=== PATIENT | male | born 1970 ===

== ENCOUNTER 2018-05-08 08:55 | Emergency (ER) | payer OTHER ==
[2018-05-08 09:44] VITALS: BP 121/97
--- NOTE | 2018-05-08 09:49 | UC ---
Respiratory Complaint HPI - HPI Summary HPI Summary: 48 y/o male presents to urgent care c/o sinus congestion w/ yellowish nasal discharge, LANG, Sinus pressure for the past week. Pain is 4/10. he has been taken Ibuprofen/Tylenol PO, Mucinex PO to alleviate symptoms w/o any improvement. He also has PND and a dry cough. Last night he had low grade fever. Pt denies dizziness, SOB, wheeaing, chest pain, abdominal pain N/V/D. - History of Current Complaint Chief Complaint: UCGeneralIllness Stated Complaint: COUGH,CONGESTION Time Seen by Provider: 05/08/18 09:47 Hx Obtained From: Patient Onset/Duration: Gradual Onset, Lasting Weeks - 1 week, Still Present, Worse Since - 2 days Timing: Constant Severity Initially: Mild Severity Currently: Moderate Pain Intensity: 4 Pain Scale Used: 0-10 Numeric Character: Cough: Productive - dry Aggravating Factors: Recumbent Position Alleviating Factors: OTC Meds Associated Signs And Symptoms: Positive: Fever, Chills, Nasal Congestion - w/ yellowish nasal discharge, Sinus Discomfort. Negative: Wheezing Related History: Seasonal Allergies - Risk Factors Pulmonary Embolism Risk Factors: Negative Cardiac Risk Factors: Negative Pseudomonas Risk Factors: Negative Tuberculosis Risk Factors: Negative - Allergies/Home Medications Allergies/Adverse Reactions: Allergies Allergy/AdvReac Type Severity Reaction Status Date / Time No Known Allergies Allergy Verified 05/08/18 09:44 PMH/Surg Hx/FS Hx/Imm Hx Previously Healthy: Yes - Pt denies PMHX - Surgical History Surgical History: Yes Surgery Procedure, Year, and Place: L knee bursa removal - Family History Known Family History: Positive: Hypertension, Diabetes - Social History Occupation: Employed Full-time Lives: With Family Alcohol Use: Occasionally Substance Use Type: None Smoking Status (MU): Never Smoked Tobacco Review of Systems All Other Systems Reviewed And Are Negative: Yes Constitutional: Positive: Fever, Chills, Other - body aches Skin: Positive: Negative Eyes: Positive: Negative ENT: Positive: Sore Throat - mild, Nasal Discharge - yellowish, Sinus Congestion , Sinus Pain/Tenderness Respiratory: Positive: Cough - dry Cardiovascular: Positive: Negative Gastrointestinal: Positive: Negative Genitourinary: Positive: Negative Motor: Positive: Negative Neurovascular: Positive: Negative Musculoskeletal: Positive: Negative Neurological: Positive: Headache Psychological: Positive: Negative Is Patient Immunocompromised?: No Physical Exam - Summary Physical Exam Summary: Physical exam: Vitals: reviewed General: Well developed, well-nourished male patient with NAD. Head and face: Normocephalic and atraumatic, Positive tenderness over the frontal and maxillary sinuses.. Eyes: PERRLA, EOMI x 2. Normal conjunctiva. No eye discharge. ENT: Ears and TM with normal limits. Nose: edematous and erythematous nasal mucosa with with yellowish discharge and erythematous mucosa. Pharynx with erythema, no exudate. +yellowish PND Neck: Supple, no JVD, no carotid bruits and no lymphadenopathy. Lungs: clear, no rales, no rhonchi, no wheezes. CVS: RRR, S1 and S2 present no murmurs or gallops appreciated. Abdomen: soft nontender with positive bowel sounds. Extremities: no edema noted. Neuro: WNL. Skin: warm and dry Triage Information Reviewed: Yes Vital Signs: Initial Vital Signs Temp 97.7 F 05/08/18 09:41 Pulse 85 05/08/18 09:41 Resp 18 05/08/18 09:41 BP 121/97 05/08/18 09:41 Pulse Ox 99 05/08/18 09:41 UC Diagnostic Evaluation - Laboratory O2 Sat by Pulse Oximetry: 99 Respiratory Course/Dx - Course Course Of Treatment: 48 y/o male presents to urgent care c/o sinus congestion w / yellowish nasal discharge, LANG, Sinus pressure for the past week. Pain is 4/ 10. he has been taken Ibuprofen/Tylenol PO, Mucinex PO to alleviate symptoms w/ o any improvement. He also has PND and a dry cough. Last night he had low grade fever. Pt denies dizziness, SOB, wheeaing, chest pain, abdominal pain N/V/D. Hx obtained. Pt w/ acute bacterial sinusitis on examination. Pt with 1 week of symptoms getting worse. Pt Rx Augmentin PO and flonase nasal spray. Advised to continue w/ Ibuprofen/ tylenol PO to alleviate fever and symptoms. Discharge instructions explained to Pt. Advised to Return to the clinic or PCP if symptoms do not improve.Pt's BP is elevated today advised to decrease salt in diet, monitor BP and f/u with PCP for further management. Pt understood and agreed with plan of care. - Differential Dx/Diagnosis Differential Diagnosis/HQI/PQRI: Bronchitis, Influenza, Laryngitis, Lower Resp Infection, Sinusitis Provider Diagnosis: Acute sinusitis, Elevated BP without diagnosis of hypertension Discharge - Sign-Out/Discharge Documenting (check all that apply): Patient Departure - d/c home All imaging exams completed and their final reports reviewed: No Studies - Discharge Plan Condition: Stable Disposition: HOME Prescriptions: Amoxicillin/Clavulanate TAB* [Augmentin TAB 875*] 875 mg PO BID #14 tab Fluticasone NASAL SPRAY 50MCG* [Flonase NASAL SPRAY 50MCG*] 2 spray BOTH NARES DAILY #1 btl Patient Education Materials: Sinusitis (ED) Forms: *Work Release Referrals: Edmar Hall MD [Primary Care Provider] - 3 Days Additional Instructions: 1- Please Take Augmentin PO to alleviate symptoms. Increase fluid intake and rest. 2-Use Flonase nasal spray and saline drops as directed to help drain fluid. 3-Take Ibuprofen or Acetaminophen for fever and pain. 4-Return to the clinic or call your PCP in 3 days if symptoms do not improve. - Billing Disposition and Condition Condition: STABLE Disposition: Home
== END 2018-05-08 10:19 | disposition home or self-care (01) ==
LOC: UCCORT 08:55
DX: J01.90 Acute sinusitis, unspecified (principal); R03.0 Elevated blood-pressure reading, without diagnosis of hypertension
CPT/HCPCS: 99212; G0463

== ENCOUNTER 2018-05-16 13:07 | Emergency (ER) | payer OTHER ==
[2018-05-16 13:40] VITALS: BP 129/88
--- NOTE | 2018-05-16 14:07 | UC ---
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 NO HEAD, NECK OR BACK INJURY OR PAIN. NO OTHER COMPLAINTS. - History of Current Complaint Chief Complaint: UCUpperExtremity Stated Complaint: S/P FALL LEFT ELBOW INJURY Time Seen by Provider: 05/16/18 13:55 Hx Obtained From: Patient Onset/Duration: Sudden Onset Pain Intensity: 4 Associated Signs & Symptoms: Negative: Edema, Weakness - Allergy/Home Medications Allergies/Adverse Reactions: Allergies Allergy/AdvReac Type Severity Reaction Status Date / Time No Known Allergies Allergy Verified 05/16/18 13:34 Home Medications: Home Medications D-Methorphan/PE/Acetaminophen [Gnp Day Time Cold/Flu Rel] 1 liq PO Q4H PRN 05/16 [History Confirmed 05/16/18] Ibuprofen TAB* [Advil TAB*] 600 mg PO Q6H PRN 05/16/18 [History Confirmed ] PMH/Surg Hx/FS Hx/Imm Hx Previously Healthy: Yes - Surgical History Surgical History: Yes Surgery Procedure, Year, and Place: L knee bursa removal - Family History Known Family History: Positive: Hypertension, Diabetes - Social History Occupation: Employed Full-time Alcohol Use: Occasionally Substance Use Type: None Smoking Status (MU): Never Smoked Tobacco - Immunization History Vaccination Up to Date: Yes Review of Systems All Other Systems Reviewed And Are Negative: Yes Constitutional: Positive: Negative Skin: Positive: Negative Eyes: Positive: Negative ENT: Positive: Negative Respiratory: Positive: Negative Cardiovascular: Positive: Negative Gastrointestinal: Positive: Negative Genitourinary: Positive: Negative Motor: Positive: Negative Neurovascular: Positive: Negative Neurological: Positive: Negative Psychological: Positive: Negative Is Patient Immunocompromised?: No Physical Exam Triage Information Reviewed: Yes Appearance: Well-Appearing Vital Signs: Initial Vital Signs Temp 97.8 F 05/16/18 13:36 Pulse 90 05/16/18 13:36 Resp 16 05/16/18 13:36 BP 129/88 05/16/18 13:36 Pulse Ox 95 05/16/18 13:36 Vital Signs Reviewed: Yes Eyes: Positive: Conjunctiva Clear ENT: Positive: Normal ENT inspection Neck: Positive: Supple, Nontender, No Lymphadenopathy, Other: - C-SPINE NON TENDER Respiratory: Positive: Lungs clear, Normal breath sounds Cardiovascular: Positive: RRR, No Murmur Abdomen Description: Positive: Nontender, No Organomegaly, Soft Bowel Sounds: Positive: Present Musculoskeletal: Positive: Other: - HEAD ATRAUMATIC. THORACIC AND LUMBAR SPINE NON TENDER. LUE SHOULDER, FOREARM, WRIST AND HAND ARE NON TENDER. HAND HAS FULL S/V/M FUNCTION. DORSAL ELBOW WITH ABRASION BUT NO SWELLING. AREA HAS MILD TENDERNESS. Neurological: Positive: Alert Psychological: Positive: Age Appropriate Behavior Skin Exam: Normal Diagnostics - Radiology No standard instances Radiology Interpretation Completed By: Radiologist - L ELBOW=NO FX Course/Dx - Diagnoses Provider Diagnosis: Left elbow contusion, Abrasion Discharge - Sign-Out/Discharge Documenting (check all that apply): Patient Departure All imaging exams completed and their final reports reviewed: Yes - Discharge Plan Condition: Stable Disposition: HOME Patient Education Materials: Contusion in Adults (ED), Abrasion (ED) Referrals: Edmar Hall MD [Primary Care Provider] - If Needed - Billing Disposition and Condition Condition: STABLE Disposition: Home
== END 2018-05-16 15:12 | disposition home or self-care (01) ==
LOC: UCCORT 13:07
DX: S50.312A Abrasion of left elbow, initial encounter (principal); W19.XXXA Unspecified fall, initial encounter; Y92.481 Parking lot as the place of occurrence of the external cause; Y99.0 Civilian activity done for income or pay
CPT/HCPCS: 99211; G0463